=== PATIENT | male | born 1995 | race African-American/Black ===

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

== ENCOUNTER 2017-05-08 22:45 | Emergency (ER) | payer SELFPAY ==
[~2017-05-08] VITALS: Ht 172.7 cm; Wt 72.5 kg
[~2017-05-08 22:45] MED LIST changes: +BENZ100 PO; -CLON0.2T PO; -RISP1 PO
[2017-05-08 23:25] VITALS: BP 129/58; PULSE 66; RESP 14; TEMP 99; O2SAT 100
--- NOTE | 2017-05-09 00:30 | PD ---
HPI Chief Complaint: Laceration/Skin Injury Time Seen by Provider: 00:10 Travel History International Travel<30 days: No Contact w/Intl Traveler<30days: No Traveled to known affect area: No History of Present Illness HPI 22-year-old [id number] black male presents with a laceration to his right thumb which occurred earlier this evening. He had stuck his hand in a broken glass in the sink. Pain is mild. Up-to-date with immunizations. No numbness or tingling. PFSH Past Medical History Medical History: Denies Significant Hx ADHD: No Asthma: Yes Bipolar Disorder: Yes Weight (Kg): Unknown Cancer: No Cardiovascular Problems: Yes ("I was told." Heart skips a beat.) Diabetes: No Diminished Hearing: No Headaches: No Psychiatric: No Migraines: No Seizures: No Thyroid Disease: No Ulcer: No Tetanus Vaccination: Unknown Influenza Vaccination: No Past Surgical History Surgical History: No Previous Surgery Other Surgery: No Social History Alcohol Use: No Tobacco Use: Yes (COUPLE CIGARETTS NOW AND THEN) Substance Use: No Allergies-Medications (Allergen,Severity, Reaction): Coded Allergies: lactose (Unverified Allergy, Mild, 05/08/17) Reported Meds & Prescriptions Reported Meds & Active Scripts Active Tessalon Perles (Benzonatate) 100 Mg Cap 200 Mg PO TID PRN Review of Systems Except as stated in HPI: all other systems reviewed are Neg Physical Exam Narrative GENERAL: This is a well-nourished, well-developed patient, in no apparent distress. SKIN: No rashes, ecchymoses or lesions. Warm and dry. HEAD: Atraumatic. Normocephalic. EYES: PERRL, EOMI, no discharge or injection. No scleral icterus. EARS: Clear NOSE: Nasal turbinates appear normal. THROAT: Mucosa pink and moist. Airway patent. NECK: Trachea midline. supple, moves head freely. LUNGS: Clear to auscultation. CV: Regular in rhythm. ABDOMEN: Soft nontender. EXT: No clubbing cyanosis or edema. Patient has a 1.8 cm laceration to the right distal phalanx of the thumb. Laceration is in the subcutaneous tissues were no tendon, nerve or joint injury. No foreign body. Data Data Last Documented VS Vital Signs Date Time Temp Pulse Resp B/P (MAP) Pulse Ox O2 Delivery O2 Flow Rate FiO2 05/08/17 23:25 99.0 66 14 129/58 (81) 100 MDM Medical Decision Making Medical Screen Exam Complete: Yes Emergency Medical Condition: Yes Medical Record Reviewed: Yes Differential Diagnosis MDM: High Differential diagnoses: Fracture, sprain, strain, dislocation, contusion, neurovascular injury Narrative Course Patient's finger laceration is closed with sutures Procedures Procedure Narrative LACERATION LOCATION: Right thumb distal phalanx LENGTH: 1.8 cm NUMBER OF STITCHES/DOTTIE: 4 REPAIR: The area of the laceration was prepped with Betadine and sterilely draped. The laceration was infiltrated with 1% lidocaine digital block. The wound was copiously irrigated and explored without evidence of foreign body, tendon injury or neurovascular injury. The wound was closed using 4-0 Prolene. This was a single layer repair. A sterile dressing was applied. The patient was advised to keep the dressing clean and dry. Patient tolerated the procedure well. Diagnosis Primary Impression: Finger laceration Qualified Codes: S61.011A - Laceration without foreign body of right thumb without damage to nail, initial encounter Patient Instructions: General Instructions Departure Forms: Tests/Procedures, Work Release Special Instructions: No work today Additional Instructions: Rest. Elevation. Keep clean and dry. Daily wound care with soap, water, Neosporin. Tylenol and Advil for pain. Sutures out in 12 days. Return to the ER for any problems. Med/Other Pt SpecificInfo: No Meds Exist/No RX given, Wound Care Disposition: 01 DISCHARGE HOME Condition: Stable Luis Morales May 09, 2017 00:30
== END 2017-05-09 01:27 | disposition home or self-care (01) ==
LOC: NEPD 22:45
DX: S61.011A Laceration without foreign body of right thumb without damage to nail, initial encounter (principal); W25.XXXA Contact with sharp glass, initial encounter
CPT/HCPCS: 12001

== ENCOUNTER 2017-05-10 23:28 | Emergency (ER) | payer SELFPAY ==
[~2017-05-10] VITALS: Ht 172.7 cm; Wt 73.0 kg
[2017-05-11] VITALS: BP 104/55; PULSE 73; RESP 20; TEMP 98.8; O2SAT 100
--- NOTE | 2017-05-11 01:24 | PD ---
HPI Chief Complaint: Wound/Suture/Staple Re-Check Time Seen by Provider: 01:09 Travel History International Travel<30 days: No Contact w/Intl Traveler<30days: No Traveled to known affect area: No History of Present Illness HPI 22-year-old male presents emergency department for recheck of his right thumb laceration. He states that 1 of his sutures pulled out today when he was sleeping. He noticed some blood. He was concerned that it may be getting infected. He denies any fever chills. No redness. No pus discharge. No pain. PFSH Past Medical History ADHD: No Asthma: Yes Bipolar Disorder: Yes Cancer: No Cardiovascular Problems: Yes ("I was told." Heart skips a beat.) Diabetes: No Diminished Hearing: No Headaches: No Psychiatric: No Migraines: No Seizures: No Thyroid Disease: No Ulcer: No Past Surgical History Other Surgery: No Social History Alcohol Use: No Tobacco Use: Yes (COUPLE CIGARETTS NOW AND THEN) Substance Use: No Allergies-Medications (Allergen,Severity, Reaction): Coded Allergies: lactose (Unverified Allergy, Mild, 05/08/17) Reported Meds & Prescriptions Reported Meds & Active Scripts Active Tessalon Perles (Benzonatate) 100 Mg Cap 200 Mg PO TID PRN Review of Systems Except as stated in HPI: all other systems reviewed are Neg Physical Exam Narrative GENERAL: This is a well-nourished, well-developed patient, in no apparent distress. SKIN: No rashes, ecchymoses or lesions. Warm and dry. HEAD: Atraumatic. Normocephalic. EYES: PERRL, EOMI, no discharge or injection. No scleral icterus. EARS: Clear NOSE: Nasal turbinates appear normal. THROAT: Mucosa pink and moist. Airway patent. NECK: Trachea midline. supple, moves head freely. LUNGS: Clear to auscultation. CV: Regular in rhythm. ABDOMEN: Soft nontender. EXT: No clubbing cyanosis or edema. Patient has a healing laceration to the right thumb without signs of infection. Data Data Last Documented VS Vital Signs Date Time Temp Pulse Resp B/P (MAP) Pulse Ox O2 Delivery O2 Flow Rate FiO2 05/11/17 00:00 98.8 73 20 104/55 (71) 100 Room Air Orders Orders Ed Discharge Order (05/11/17 01:21) MDM Medical Decision Making Medical Screen Exam Complete: Yes Emergency Medical Condition: Yes Medical Record Reviewed: Yes Differential Diagnosis MDM: High Differential diagnoses: Fracture, sprain, strain, dislocation, contusion, neurovascular injury, wound infection Narrative Course Patient has a healing laceration to the right thumb without infection. Diagnosis Primary Impression: Healing laceration Patient Instructions: General Instructions Additional Instructions: Rest. Elevation. Daily wound care with soap and water. Sutures out in 10 days. Return to the ER for emergencies. Med/Other Pt SpecificInfo: Wound Care Disposition: 01 DISCHARGE HOME Condition: Stable Luis Morales May 11, 2017 01:24
== END 2017-05-11 01:58 | disposition home or self-care (01) ==
LOC: NEPD 23:28
DX: S61.011D Laceration without foreign body of right thumb without damage to nail, subsequent encounter (principal); J45.909 Unspecified asthma, uncomplicated; F31.9 Bipolar disorder, unspecified; F17.210 Nicotine dependence, cigarettes, uncomplicated; X58.XXXD Exposure to other specified factors, subsequent encounter
CPT/HCPCS: 99281

== ENCOUNTER 2017-07-11 14:32 | Emergency (ER) | payer MEDICAID ==
[~2017-07-11] VITALS: Ht 172.7 cm; Wt 69.0 kg
[2017-07-11 14:44] VITALS: BP 111/58; PULSE 80; RESP 17; TEMP 98.4; O2SAT 100
[2017-07-11] MEDS ORDERED: SODIUM CHLOR 0.9% 1000 ML INJ 1,000 ML IV SCH (14:58)
[2017-07-11] MEDS ORDERED: ALUMINUM/MAGNESIUM/SIMETH 30 ML CUP PO ONE (15:00)
[2017-07-11] MEDS ORDERED: PANTOPRAZOLE SODIUM 40 MG VIAL IVP ONE (15:00)
[2017-07-11] MEDS ORDERED: SODIUM CHLORIDE 0.9% FLUSH 10 ML FLUSH IV FLUSH PRN (15:00)
[2017-07-11] MEDS ORDERED: ONDANSETRON HCL 4 MG/2 ML VIAL IVP ONE (15:00)
[2017-07-11] MEDS ORDERED: LIDOCAINE VISCOUS 2% SOLN 15 ML UDC PO ONE (15:00)
--- NOTE | 2017-07-11 15:04 | PD ---
HPI Chief Complaint: GI Complaint Time Seen by Provider: 14:48 Travel History International Travel<30 days: No Contact w/Intl Traveler<30days: No Traveled to known affect area: No History of Present Illness HPI This is a 22-year-old male who presents for evaluation of hematemesis and abdominal pain. He reports that for 3 months he has had multiple episodes of hematemesis with dark blood streaks. He reports that he has had epigastric abdominal pain and bloating sensation for the past 1.5 months. He reports that he has been seen here about this several times in the past and told that he has a viral gastroenteritis and the recommendation was for bland diet. He reports that symptoms have persisted and that is what prompted evaluation today. He reports that he has had weight loss. He denies dysuria, flank pain, chest pain , fevers or chills. He denies any frequent [id number] NSAID use. He did take ibuprofen yesterday for headache. He denies any alcohol use. He has no other complaints at this time. PFSH Past Medical History ADHD: No Asthma: Yes Bipolar Disorder: Yes Cancer: No Cardiovascular Problems: Yes ("I was told." Heart skips a beat.) Diabetes: No Diminished Hearing: No Headaches: No Psychiatric: No Migraines: No Seizures: No Thyroid Disease: No Ulcer: No Past Surgical History Other Surgery: No Social History Alcohol Use: No Tobacco Use: Yes (COUPLE CIGARETTS NOW AND THEN) Substance Use: No Allergies-Medications (Allergen,Severity, Reaction): Coded Allergies: lactose (Unverified Allergy, Mild, 05/08/17) Reported Meds & Prescriptions Reported Meds & Active Scripts Active Zofran (Ondansetron HCl) 4 Mg Tab 4 Mg PO Q6HR PRN Review of Systems Except as stated in HPI: all other systems reviewed are Neg Physical Exam Narrative GENERAL: Well-developed well-nourished male no acute distress SKIN: Warm and dry. HEAD: Atraumatic. Normocephalic. EYES: Pupils equal and round. No scleral icterus. No injection or drainage. ENT: No nasal bleeding or discharge. Mucous membranes pink and moist. NECK: Trachea midline. No JVD. CARDIOVASCULAR: Regular rate and rhythm. No murmur appreciated. RESPIRATORY: No accessory muscle use. Clear to auscultation. Breath sounds equal bilaterally. GASTROINTESTINAL: Abdomen soft, some tenderness to palpation in the epigastrium without guarding. Rectal examination reveals yellow tinged stool which is faintly Hemoccult positive. MUSCULOSKELETAL: No obvious deformities. No clubbing. No cyanosis. No edema. NEUROLOGICAL: Awake and alert. No obvious cranial nerve deficits. Motor grossly within normal limits. Normal speech. Data Data Last Documented VS Vital Signs Date Time Temp Pulse Resp B/P (MAP) Pulse Ox O2 Delivery O2 Flow Rate FiO2 07/11/17 14:44 98.4 80 17 111/58 (75) 100 Orders Orders Complete Blood Count With Diff (07/11/17 14:58) Comprehensive Metabolic Panel (07/11/17 14:58) Lipase (07/11/17 14:58) Prothrombin Time / Inr (Pt) (07/11/17 14:58) Act Partial Throm Time (Ptt) (07/11/17 14:58) Urinalysis - C+S If Indicated (07/11/17 14:58) Ct Abd/Pel W Iv Contrast(Rout) (07/11/17 14:58) Iv Access Insert/Monitor (07/11/17 14:58) Ecg Monitoring (07/11/17 14:58) Oximetry (07/11/17 14:58) Ondansetron Inj (Zofran Inj) (07/11/17 15:00) Pantoprazole Inj (Protonix Inj) (07/11/17 15:00) Sodium Chlor 0.9% 1000 Ml Inj (Ns 1000 M (07/11/17 14:58) Sodium Chloride 0.9% Flush (Ns Flush) (07/11/17 15:00) Al-Mag Hy-Si 40-40-4 Mg/Ml Liq (Mag-Al P (07/11/17 15:00) Lidocaine 2% Viscous (Xylocaine 2% Visco (07/11/17 15:00) Dextrose 50% In Diana (Vial) Inj (D50w (Vi (07/11/17 18:00) Iohexol 350 Inj (Omnipaque 350 Inj) (07/11/17 18:03) Ed Discharge Order (07/11/17 18:37) Labs Laboratory Tests Test 07/11/17 15:25 07/11/17 16:30 White Blood Count 5.8 TH/MM3 Red Blood Count 4.91 MIL/MM3 Hemoglobin 14.4 GM/DL Hematocrit 42.7 % Mean Corpuscular Volume 86.9 FL Mean Corpuscular Hemoglobin 29.4 PG Mean Corpuscular Hemoglobin Concent 33.9 % Red Cell Distribution Width 14.3 % Platelet Count 256 TH/MM3 Mean Platelet Volume 7.8 FL Neutrophils (%) (Auto) 59.9 % Lymphocytes (%) (Auto) 31.0 % Monocytes (%) (Auto) 7.7 % Eosinophils (%) (Auto) 0.9 % Basophils (%) (Auto) 0.5 % Neutrophils # (Auto) 3.5 TH/MM3 Lymphocytes # (Auto) 1.8 TH/MM3 Monocytes # (Auto) 0.4 TH/MM3 Eosinophils # (Auto) 0.1 TH/MM3 Basophils # (Auto) 0.0 TH/MM3 CBC Comment DIFF FINAL Differential Comment Prothrombin Time 11.5 SEC Prothromb Time International Ratio 1.1 RATIO Activated Partial Thromboplast Time 25.2 SEC Blood Urea Nitrogen 11 MG/DL Creatinine 1.02 MG/DL Random Glucose 62 MG/DL Total Protein 7.6 GM/DL Albumin 4.0 GM/DL Calcium Level 9.0 MG/DL Alkaline Phosphatase 58 U/L Aspartate Amino Transf (AST/SGOT) 21 U/L Alanine Aminotransferase (ALT/SGPT) 14 U/L Total Bilirubin 0.7 MG/DL Sodium Level 142 MEQ/L Potassium Level 3.6 MEQ/L Chloride Level 106 MEQ/L Carbon Dioxide Level 29.1 MEQ/L Anion Gap 7 MEQ/L Estimat Glomerular Filtration Rate 113 ML/MIN Lipase 97 U/L Urine Color YELLOW Urine Turbidity CLEAR Urine pH 7.0 Urine Specific [place] 1.010 Urine Protein NEG mg/dL Urine Glucose (UA) NEG mg/dL Urine Ketones NEG mg/dL Urine Occult Blood NEG Urine Nitrite NEG Urine Bilirubin NEG Urine Urobilinogen 0.2 MG/DL Urine Leukocyte Esterase TRACE Urine RBC 1 /hpf Urine WBC 2 /hpf Urine Bacteria RARE /hpf Urine Mucus FEW /lpf Microscopic Urinalysis Comment CULT NOT INDICATED MDM Medical Decision Making Medical Screen Exam Complete: Yes Emergency Medical Condition: Yes Medical Record Reviewed: Yes Differential Diagnosis Peptic ulcer disease, gastritis, Boorhaves, Marisol-Quigley tear, colitis, inflammatory bowel disease, cannabinoid induced emesis, malignancy Narrative Course 22-year-old male presents with 3 months of daily hematemesis and 1.5 months of epigastric abdominal pain. Lab work, CT abdomen pelvis has been ordered. The patient will be IV fluids, Zofran, GI cocktail and Protonix. The patient's lab work is been reviewed and found to be very reassuring. His hemoglobin is within normal limits. Glucose is slightly low at 62. The patient was given D50. His CT abdomen pelvis is normal as well. At this point in time the plan would be to have him follow-up with a food tray assembler for further evaluation. He will be given a prescription for Zofran. Diagnosis Primary Impression: Nausea and vomiting Additional Impression: History of hematemesis Referrals: Keith Bui MD Additional Instructions: Medication as needed, slowly advance diet as tolerated. Follow-up with a food tray assembler such as Dr. Bui and return for any emergent medical conditions. Med/Other Pt SpecificInfo: Prescription(s) given Scripts Ondansetron (Zofran) 4 Mg Tab 4 MG PO Q6HR Y for NAUSEA OR VOMITING, #20 TAB 0 Refills Prov: Adrienne Bolton MD 07/11/17 Disposition: 01 DISCHARGE HOME Condition: Stable Samuel Forman July 11, 2017 15:04
[2017-07-11 15:49] LABS: AUTOMATED NEUTROPHIL # 3.5 TH/MM3 (1.8-7.7); BASOPHIL % 0.5 % (0.0-2.0); EOSINOPHIL # 0.1 TH/MM3 (0-0.4); EOSINOPHIL % 0.9 % (0.0-4.0); HEMATOCRIT 42.7 % (39.0-51.0); HEMOGLOBIN 14.4 GM/DL (13.0-17.0); LYMPHOCYTE # 1.8 TH/MM3 (1.0-4.8); MEAN CELL VOLUME 86.9 FL (80.0-100.0); MEAN CORPUSCULAR HEMOGLOBIN 29.4 PG (27.0-34.0); MEAN CORPUSCULAR HGB CONC 33.9 % (32.0-36.0); MEAN PLATELET VOLUME 7.8 FL (7.0-11.0); MONO % 7.7 % (0.0-8.0); MONOCYTE # 0.4 TH/MM3 (0-0.9); NEUT % 59.9 % (16.0-70.0); PLATELET COUNT 256 TH/MM3 (150-450); RED BLOOD COUNT 4.91 MIL/MM3 (4.50-5.90); RED CELL DISTRIBUTION WIDTH 14.3 % (11.6-17.2); WHITE BLOOD COUNT 5.8 TH/MM3 (4.0-11.0)
[2017-07-11 16:01] LABS: INTERNATIONAL NORMALIZED RATIO 1.1 RATIO; PROTHROMBIN TIME - PATIENT 11.5 SEC (9.8-11.6)
[2017-07-11 16:05] LABS: ALT (GPT) 14 U/L (9-52); AST (GOT) 21 U/L (15-39); BICARBONATE 29.1 MEQ/L (21.0-32.0); BLOOD UREA NITROGEN 11 MG/DL (7-18); CHLORIDE 106 MEQ/L (98-107); CREATININE 1.02 MG/DL (0.60-1.30); GLOMERULAR FILTRATION RATE 113 ML/MIN (>89); GLUCOSE,RANDOM 62 MG/DL (74-106); SODIUM (NA) 142 MEQ/L (136-145)
[2017-07-11 16:07] LABS: ALKALINE PHOSPHATASE 58 U/L (45-117); TOTAL BILIRUBIN ADULT 0.7 MG/DL (0.2-1.0); TOTAL PROTEIN 7.6 GM/DL (6.4-8.2)
[2017-07-11 16:51] LABS: BILIRUBIN, URINE NEG (NEG); BLOOD, URINE NEG (NEG); GLUCOSE,URINE NEG (NEG); KETONE, URINE NEG (NEG); NITRITE,URINE NEG (NEG); URINE COLOR YELLOW (YELLW/STRAW); URINE LEUKOCYTE ESTERASE TRACE (NEG)
[2017-07-11 16:59] LABS: BACTERIA, URINE RARE /hpf; MUCUS URINE FEW /lpf (OCC)
[2017-07-11] MEDS ORDERED: ZOFR4TAB PO (17:58)
[2017-07-11] MEDS ORDERED: DEXTROSE 50% IN WATER 50 ML VIAL(D50) IV PUSH ONE (18:00)
[2017-07-11] MEDS ORDERED: IOHEXOL 350 MG/ML 10 ML VIAL (for RAD DIAG) IVCONTRAST ONE (18:03)
--- NOTE | 2017-07-11 18:33 | RADRPT ---
EXAM DATE/TIME: 07/11/2017 18:00 [facility] COMPARISON: No previous studies available for comparison. INDICATIONS : Vomiting blood. IV CONTRAST: 68 cc Omnipaque 350 (iohexol) IV ORAL CONTRAST: No oral contrast ingested. RADIATION DOSE: 5.76 CTDIvol (mGy) MEDICAL HISTORY : Cardiovascular disease. SURGICAL HISTORY : None. ENCOUNTER: Initial ACUITY: 1 day PAIN SCALE: 4/10 LOCATION: abdomen TECHNIQUE: Volumetric scanning of the abdomen and pelvis was performed. Using automated exposure control and ad justment of the mA and/or kV according to patient size, radiation dose was kept as low as reasonably achievable to obtain optimal diagnostic quality images. DICOM format image data is available electro nically for review and comparison. FINDINGS: LOWER LUNGS: The visualized lower lungs are clear. LIVER: Homogeneous density without lesion. There is no dilation of the biliary tree. No calcified gallston es. SPLEEN: Normal size without lesion. PANCREAS: Within normal limits. KIDNEYS: Normal in size and shape. There is no mass, stone or hydronephrosis. ADRENAL GLANDS: Within normal limits. VASCULAR: There is no aortic aneurysm. BOWEL/MESENTERY: The stomach, small bowel, and colon demonstrate no acute abnormality. There is no free intraperitone al air or fluid. ABDOMINAL WALL: Within normal limits. RETROPERITONEUM: There is no lymphadenopathy. BLADDER: No wall thickening or mass. REPRODUCTIVE: Within normal limits. INGUINAL: There is no lymphadenopathy or hernia. MUSCULOSKELETAL: Within normal limits for patient age. CONCLUSION: Normal examination. Luis Avila MD on July 11, 2017 at 18:28 Board Certified Radiologist. This report was verified electronically.
--- NOTE | 2017-07-11 19:12 | PD ---
Data Data Last Documented VS Vital Signs Date Time Temp Pulse Resp B/P (MAP) Pulse Ox O2 Delivery O2 Flow Rate FiO2 07/11/17 14:44 98.4 80 17 111/58 (75) 100 Orders Orders Complete Blood Count With Diff (07/11/17 14:58) Comprehensive Metabolic Panel (07/11/17 14:58) Lipase (07/11/17 14:58) Prothrombin Time / Inr (Pt) (07/11/17 14:58) Act Partial Throm Time (Ptt) (07/11/17 14:58) Urinalysis - C+S If Indicated (07/11/17 14:58) Ct Abd/Pel W Iv Contrast(Rout) (07/11/17 14:58) Iv Access Insert/Monitor (07/11/17 14:58) Ecg Monitoring (07/11/17 14:58) Oximetry (07/11/17 14:58) Ondansetron Inj (Zofran Inj) (07/11/17 15:00) Pantoprazole Inj (Protonix Inj) (07/11/17 15:00) Sodium Chlor 0.9% 1000 Ml Inj (Ns 1000 M (07/11/17 14:58) Sodium Chloride 0.9% Flush (Ns Flush) (07/11/17 15:00) Al-Mag Hy-Si 40-40-4 Mg/Ml Liq (Mag-Al P (07/11/17 15:00) Lidocaine 2% Viscous (Xylocaine 2% Visco (07/11/17 15:00) Dextrose 50% In Diana (Vial) Inj (D50w (Vi (07/11/17 18:00) Iohexol 350 Inj (Omnipaque 350 Inj) (07/11/17 18:03) Ed Discharge Order (07/11/17 18:37) Labs Laboratory Tests Test 07/11/17 15:25 07/11/17 16:30 White Blood Count 5.8 TH/MM3 Red Blood Count 4.91 MIL/MM3 Hemoglobin 14.4 GM/DL Hematocrit 42.7 % Mean Corpuscular Volume 86.9 FL Mean Corpuscular Hemoglobin 29.4 PG Mean Corpuscular Hemoglobin Concent 33.9 % Red Cell Distribution Width 14.3 % Platelet Count 256 TH/MM3 Mean Platelet Volume 7.8 FL Neutrophils (%) (Auto) 59.9 % Lymphocytes (%) (Auto) 31.0 % Monocytes (%) (Auto) 7.7 % Eosinophils (%) (Auto) 0.9 % Basophils (%) (Auto) 0.5 % Neutrophils # (Auto) 3.5 TH/MM3 Lymphocytes # (Auto) 1.8 TH/MM3 Monocytes # (Auto) 0.4 TH/MM3 Eosinophils # (Auto) 0.1 TH/MM3 Basophils # (Auto) 0.0 TH/MM3 CBC Comment DIFF FINAL Differential Comment Prothrombin Time 11.5 SEC Prothromb Time International Ratio 1.1 RATIO Activated Partial Thromboplast Time 25.2 SEC Blood Urea Nitrogen 11 MG/DL Creatinine 1.02 MG/DL Random Glucose 62 MG/DL Total Protein 7.6 GM/DL Albumin 4.0 GM/DL Calcium Level 9.0 MG/DL Alkaline Phosphatase 58 U/L Aspartate Amino Transf (AST/SGOT) 21 U/L Alanine Aminotransferase (ALT/SGPT) 14 U/L Total Bilirubin 0.7 MG/DL Sodium Level 142 MEQ/L Potassium Level 3.6 MEQ/L Chloride Level 106 MEQ/L Carbon Dioxide Level 29.1 MEQ/L Anion Gap 7 MEQ/L Estimat Glomerular Filtration Rate 113 ML/MIN Lipase 97 U/L Urine Color YELLOW Urine Turbidity CLEAR Urine pH 7.0 Urine Specific [place] 1.010 Urine Protein NEG mg/dL Urine Glucose (UA) NEG mg/dL Urine Ketones NEG mg/dL Urine Occult Blood NEG Urine Nitrite NEG Urine Bilirubin NEG Urine Urobilinogen 0.2 MG/DL Urine Leukocyte Esterase TRACE Urine RBC 1 /hpf Urine WBC 2 /hpf Urine Bacteria RARE /hpf Urine Mucus FEW /lpf Microscopic Urinalysis Comment CULT NOT INDICATED MDM Supervised Visit with [facility]: Yes Narrative Course The history, exam, and medical decision-making in the associated midlevel provider note were completed with my assistance. I reviewed and agree with the findings presented. I attest that I had a [id number] encounter with the patient on the same day, and personally performed and documented my assessment and findings in the medical record. *My assessment and Findings: This is a 22-year-old male who presents to the emergency department with hematemesis has been going on for [address] were reassuring. Patient requires follow-up with GI and an endoscopy as an outpatient. He does not have insurance. I gave him a referral to [facility] to establish primary care follow-up. Otherwise I think is stable for discharge and there is no evidence of life-threatening GI bleed at this time. Diagnosis Primary Impression: Nausea and vomiting Additional Impression: History of hematemesis Referrals: Keith Bui MD Additional Instruction: Medication as needed, slowly advance diet as tolerated. Follow-up with a mixing machine tender such as Dr. Bui and return for any emergent medical conditions. Scripts Ondansetron (Zofran) 4 Mg Tab 4 MG PO Q6HR Y for NAUSEA OR VOMITING, #20 TAB 0 Refills Prov: Adrienne Bolton MD 07/11/17 Disposition: 01 DISCHARGE HOME Condition: Stable Adrienne Bolton MD July 11, 2017 19:12
== END 2017-07-11 19:44 | disposition home or self-care (01) ==
LOC: NEPD 14:32
DX: R11.2 Nausea with vomiting, unspecified (principal); R10.13 Epigastric pain; J45.909 Unspecified asthma, uncomplicated; F31.9 Bipolar disorder, unspecified; F17.210 Nicotine dependence, cigarettes, uncomplicated
CPT/HCPCS: 74177; 80053; 81001; 83690; 85025; 85610; 85730; 96361; 96374; 96375; 99284; C9113; J2405; J7030; Q9967